=== PATIENT | male | born 1955 | race Caucasian/White ===

== ENCOUNTER 2017-05-11 21:20 | Emergency (ER) | payer BC ==
[2017-05-12 02:15] LABS: ADD MAN DIFF? NO
[2017-05-12 02:23] LABS: WHITE BLOOD COUNT 10.4 10^3/ul (4.8-10.8)
[2017-05-12 02:23] LABS: BASOPHILS % 0.4 % (0.0-2.0); EOSINOPHILS # 0.1 10^3/ul (0.0-0.5); HEMATOCRIT 36.2 % (42.0-52.0); LYMPHOCYTES # 2.5 10^3/ul (0.8-2.9); LYMPHOCYTES % 24.2 % (15.0-51.0); MEAN CORPUSCULAR HEMOGLOBIN 30.5 pg (29.0-33.0); MEAN CORPUSCULAR HGB CONC 33.1 g/dl (32.0-37.0); MEAN CORPUSCULAR VOLUME 92.1 fl (82.0-101.0); MEAN PLATELET VOLUME 9.4 fl (7.4-10.4); MONOCYTE # 0.5 10^3/ul (0.3-0.9); MONOCYTES % 4.4 % (0.0-11.0); NEUTROPHIL # 7.3 10^3/ul (1.6-7.5); NEUTROPHILS % 69.9 % (39.0-77.0); PLATELET COUNT 333 10^3/UL (140-415); RED BLOOD COUNT 3.93 10^6/ul (4.70-6.10); RED CELL DISTRIBUTION WIDTH 13.7 % (11.5-14.5)
[2017-05-12 02:43] LABS: ALANINE AMINOTRANSFERASE 33 IU/L (13-69); ALBUMIN 4.1 g/dl (3.3-4.9); ALKALINE PHOSPHATASE 107 IU/L (42-121); ANION GAP 12 (8-16); ASPARTATE AMINO TRANSFERASE 33 IU/L (15-46); BILIRUBIN,INDIRECT 0.2 mg/dl (0-1.1); BILIRUBIN,TOTAL 0.2 mg/dl (0.2-1.3); BLOOD UREA NITROGEN 19 mg/dl (7-20); CALCIUM 9.3 mg/dl (8.4-10.2); CARBON DIOXIDE 31 mmol/L (21-31); CHLORIDE 103 mmol/L (97-110); CREATININE 0.86 mg/dl (0.61-1.24); GLUCOSE 79 mg/dl (70-220); POTASSIUM 4.5 mmol/L (3.5-5.1); SODIUM 141 mmol/L (135-144); TOTAL PROTEIN 7.5 g/dl (6.1-8.1)
[2017-05-12] MEDS: ALBUTEROL 0.083% (NEB) 2.5 MG/3 ML AMP NEB (03:12)
== END 2017-05-12 04:38 | disposition home or self-care (01) ==
LOC: E/R 21:20
DX: J45.901 Unspecified asthma with (acute) exacerbation (principal); L98.9 Disorder of the skin and subcutaneous tissue, unspecified; R40.2142 Coma scale, eyes open, spontaneous, at arrival to emergency department; R40.2252 Coma scale, best verbal response, oriented, at arrival to emergency department; R40.2362 Coma scale, best motor response, obeys commands, at arrival to emergency department
CPT/HCPCS: 36415; 71045; 80053; 85025; 94664; 99284-25

== ENCOUNTER 2017-05-26 16:45 | Emergency (ER) | payer BC | END 2017-05-26 17:34 | disposition home or self-care (01) | LOC: E/R 16:45 | DX: R21 Rash and other nonspecific skin eruption (principal); J45.909 Unspecified asthma, uncomplicated | CPT/HCPCS: 99284 ==

== ENCOUNTER 2017-06-10 19:02 | Emergency (ER) | payer BC | END 2017-06-10 19:59 | disposition home or self-care (01) | LOC: FTE 19:02 | DX: L98.1 Factitial dermatitis (principal); J45.909 Unspecified asthma, uncomplicated; F40.298 Other specified phobia | CPT/HCPCS: 99284 ==

== ENCOUNTER 2017-06-25 20:47 | Emergency (ER) | payer BC ==
[2017-06-26] MEDS: IPRATROPIUM (NEB) 0.5 MG/2.5 ML AMP INH (00:46)
[2017-06-26] MEDS: ALBUTEROL 0.5% (NEB) 2.5 MG/0.5 ML AMP INH (00:46)
[2017-06-26] MEDS: SOD CHLORIDE 0.9% 1,000 ML IV (00:59)
[2017-06-26] MEDS: METHYLPREDNISOLONE 125 MG INJ IV (00:59)
[2017-06-26] MEDS: ALBUTEROL 0.083% (NEB) 2.5 MG/3 ML AMP NEB (04:54)
[2017-06-26] MEDS: MAGNESIUM SULFATE 2 GM/50 ML 50 ML IVPB (05:12)
[2017-06-26] MEDS: HYDROCODONE/APAP (5/325) TAB PO (06:15)
== END 2017-06-26 07:09 | disposition home or self-care (01) ==
LOC: FTE 20:47
DX: J45.41 Moderate persistent asthma with (acute) exacerbation (principal)
CPT/HCPCS: 94644; 94664; 96374; 96375; 99284-25

== ENCOUNTER 2017-07-03 17:32 | Emergency (ER) | payer BC ==
[2017-07-03] MEDS: ALBUTEROL 0.083% (NEB) 2.5 MG/3 ML AMP HHN (21:17)
[2017-07-03] MEDS: IPRATROPIUM (NEB) 0.5 MG/2.5 ML AMP HHN (21:17)
[2017-07-03 21:49] LABS: ADD MAN DIFF? NO
[2017-07-03 21:52] LABS: WHITE BLOOD COUNT 12.1 10^3/ul (4.8-10.8)
[2017-07-03 21:52] LABS: BASOPHILS % 0.2 % (0.0-2.0); EOSINOPHILS # 0.2 10^3/ul (0.0-0.5); EOSINOPHILS % 1.4 % (0.0-7.0); HEMATOCRIT 34.7 % (42.0-52.0); HEMOGLOBIN 11.1 g/dl (14.0-18.0); LYMPHOCYTES # 2.9 10^3/ul (0.8-2.9); LYMPHOCYTES % 23.8 % (15.0-51.0); MEAN CORPUSCULAR HEMOGLOBIN 30.6 pg (29.0-33.0); MEAN CORPUSCULAR VOLUME 95.6 fl (82.0-101.0); MEAN PLATELET VOLUME 9.2 fl (7.4-10.4); MONOCYTE # 0.6 10^3/ul (0.3-0.9); MONOCYTES % 5.2 % (0.0-11.0); NEUTROPHIL # 8.3 10^3/ul (1.6-7.5); NEUTROPHILS % 68.6 % (39.0-77.0); PLATELET COUNT 320 10^3/UL (140-415); RED BLOOD COUNT 3.63 10^6/ul (4.70-6.10); RED CELL DISTRIBUTION WIDTH 14.1 % (11.5-14.5)
[2017-07-03 22:29] LABS: ANION GAP 8 (8-16); BLOOD UREA NITROGEN 14 mg/dl (7-20); CALCIUM 8.3 mg/dl (8.4-10.2); CARBON DIOXIDE 31 mmol/L (21-31); CHLORIDE 103 mmol/L (97-110); CREATININE 0.79 mg/dl (0.61-1.24); GLUCOSE 84 mg/dl (70-220); POTASSIUM 4.3 mmol/L (3.5-5.1); SODIUM 138 mmol/L (135-144)
[2017-07-03 22:40] LABS: B-TYPE NATRIURETIC PEPTIDE 454 PG/ML (0-125)
[2017-07-03 22:45] LABS: TROPONIN-I < 0.012 ng/ml (0.00-0.12)
[2017-07-03] MEDS: KETOROLAC 15 MG INJ IV (23:06)
== END 2017-07-03 23:28 | disposition home or self-care (01) ==
LOC: E/R 17:32
DX: J45.901 Unspecified asthma with (acute) exacerbation (principal); R60.9 Edema, unspecified; R40.2142 Coma scale, eyes open, spontaneous, at arrival to emergency department; R40.2252 Coma scale, best verbal response, oriented, at arrival to emergency department; R40.2362 Coma scale, best motor response, obeys commands, at arrival to emergency department
CPT/HCPCS: 36415; 80048; 83880; 84484; 85025; 93005; 94644; 96374; 99285-25

== ENCOUNTER 2018-07-01 06:16 | Day surgery (SDC) | payer BC ==
[2018-07-01] MEDS ORDERED: PROPOFOL 40 ML (07:55)
[2018-07-01] MEDS ORDERED: LIDOCAINE 100 MG SYRINGE (07:55)
[2018-07-01] MEDS ORDERED: ALBUTEROL 0.083% (NEB) 2.5 MG/3 ML AMP HHN (09:00)
[2018-07-01] MEDS ORDERED: FENTAnyl 50 MCG/ML VIAL IV ×3 (09:00→09:30)
[2018-07-01] MEDS ORDERED: HYDROmorphONE 1 MG/5 ML IV SYRINGE IV ×3 (09:00→09:30)
[2018-07-01] MEDS ORDERED: FENTAnyl 50 MCG/ML VIAL (09:22)
[2018-07-01] MEDS ORDERED: HYDROmorphONE 1 MG/ML SYG (09:22)
[2018-07-01] MEDS: FENTAnyl 50 MCG/ML VIAL IV (09:27)
[2018-07-01] MEDS ORDERED: METOCLOPRAMIDE 10 MG INJ IV (09:30)
[2018-07-01] MEDS: HYDROmorphONE 1 MG/5 ML IV SYRINGE IV (09:32)
[2018-07-01] MEDS ORDERED: ONDANSETRON 4 MG INJ (09:37)
[2018-07-01] MEDS: ONDANSETRON 4 MG INJ IV (09:39)
== END 2018-07-01 15:22 | disposition home or self-care (01) ==
LOC: GIL 06:16
DX: K57.30 Diverticulosis of large intestine without perforation or abscess without bleeding (principal); K44.9 Diaphragmatic hernia without obstruction or gangrene
CPT/HCPCS: 43239; 88305; 88312